=== PATIENT | female | born 1995 | race Caucasian/White ===

== ENCOUNTER 2017-05-03 20:36 | Emergency (ER) | payer MEDICAID ==
[2017-05-03 20:43] VITALS: BP 125/73; PULSE 77; RESP 16; TEMP 98.8; O2SAT 100
--- NOTE | 2017-05-03 21:26 | EDPHY ---
H & P Stated Complaint: hurt back weightlifting/yoga Time Seen by Provider: 05/03/17 21:15 HPI/ROS: CHIEF COMPLAINT: acute low back pain HISTORY OF PRESENT ILLNESS: 21-year-old female arrives via private vehicle states that 2 weeks ago she was performing lifting, bent over at the waist and felt immediate pain in her low back. This was then exacerbated further when she was performing yoga a few days later. She has continued left paraspinous low back pain with reproducible pain with range of motion, mild radiculopathy to the left lower extremity, no footdrop no weakness. No saddle anesthesia. No incontinence. No retention. No direct trauma or fall. No fever no chills. REVIEW OF SYSTEMS: A ten point review of systems was performed and is negative with the exception of the items mentioned in the HPI PAST MEDICAL & SURGICAL HISTORY: no prior history of back pain SOCIAL HISTORY:student nonsmoker PHYSICAL EXAM (Prior to examination, patient consented to physical exam, hands were washed and my usual and customary physical exam procedures followed) 1) GENERAL: Well-developed, well-nourished, alert and oriented. Appears to be in no acute distress. 2) HEAD: Normocephalic, atraumatic 3) HEENT: Pupils equal, round, reactive to light bilaterally. Sclera anicteric. Nasopharynx, oropharynx, clear, no lesions. 4) NECK: Full range of motion, no meningeal signs. 5) LUNGS: Clear auscultation bilaterally, no wheezes, no rhonchi, no retractions. 6) HEART: Regular rate and rhythm, no murmur, no heave, no gallop. 7) ABDOMEN: No guarding, no rebound, no focal tenderness, negative McBurney's, negative Rincon's, negative Rovsing's, negative peritoneal sign, 8) MUSCULOSKELETAL: Moving all extremities, no focal areas of tenderness, no obvious trauma. No peripheral edema or discoloration. 9) BACK: tender to palpation left paraspinous lumbar muscle. No CVA tenderness , no midline vertebral tenderness, no fluctuance, no step-off, no obvious trauma , no visual or palpable abnormality. Patella, Achilles reflexes intact to bilateral strength 5/5. Positive left leg lift test approximately 20 degrees 10) SKIN: No rash, no petechiae. 11) NEURO: Awake, alert, and oriented to person, place and time. Answers questions appropriately. There were no obvious focal neurologic abnormalities. No cerebellar dysfunction. Normal steady gait. Upper and lower extremities bilaterally with strength 5 / 5, reflexes 2+.. DIFFERENTIAL DIAGNOSIS: In no particular order, including but not limited to, fracture, sprain/strain, cauda equina, spinal infectious etiology. MEDICAL DECISION MAKING I explained the patient that I have a lower index of suspicion for cauda equina , epidural abscess, epidural hematoma, lumbar myositis, diskitis, as the patient is neurologically intact in the lower extremities, has patella and Achilles reflexes intact and equal bilaterally, has no neurologic deficits, no incontinence, no retention, no midline pain, no fluctuance, afebrile, no flulike symptoms. Pain may be secondary to muscular strain, may be secondary to discogenic etiology. At this point I do not identify definitive indication for emergent MRI, however patient may necessitate this on an outpatient basis. She has been given acute back pain precautions and follow-up information. She verbalizes understanding of discharge instructions. I believe them be competent decision-makers. All questions and concerns have been addressed by me. Ample opportunity for questions have been provided . The patient understands that this diagnosis is provisional and can never be 100% accurate. Usual and customary warnings were given concerning the clinical impression and all the patient's questions were answered. The patient was instructed to return to the emergency department should her symptoms worsen or return, or develop any new symptoms, otherwise to followup as directed in discharge instructions.Care of patient under supervision of secondary supervising physician Dr Mcgowan . - Personal History LMP (Females 10-55): 8-14 Days Ago Current Tetanus/Diphtheria Vaccine: No - Medical/Surgical History Hx Asthma: No Hx Chronic Respiratory Disease: No Hx Diabetes: No Hx Cardiac Disease: No Hx Renal Disease: No Hx Cirrhosis: No Hx Alcoholism: No Hx HIV/AIDS: No Hx Splenectomy or Spleen Trauma: No Other PMH: PMHx: denies. PSHx: denies - Social History Smoking Status: Never smoked Constitutional: Initial Vital Signs Temperature (C) 37.1 C 05/03/17 20:41 Heart Rate 77 10/16/17 20:41 Respiratory Rate 16 05/03/17 20:41 Blood Pressure 125/73 H 05/03/17 20:41 O2 Sat (%) 100 05/03/17 20:41 O2 Delivery Mode Room Air Allergies/Adverse Reactions: No Known Allergies Allergy (Unverified 05/03/17 20:41) Home Medications: Medication Instructions Recorded Cyclobenzaprine [Flexeril 10 MG 10 mg PO TID #15 tab 05/03/17 (RX)] Lidocaine 5% [Lidoderm 5% Patch 1 ea TD BID #30 patch 05/03/17 (*)] methylPREDNISolone [Medrol Dose 4 mg PO DAILY #1 ea 05/03/17 Elio] Departure - Departure Disposition: Home, Routine, Self-Care Clinical Impression: Low back pain Qualifiers: Chronicity: acute Back pain laterality: left Sciatica presence: with sciatica Sciatica laterality: sciatica of left side Qualified Code(s): M54.42 - Lumbago with sciatica, left side Condition: Good Instructions: Acute Low Back Pain (ED) Additional Instructions: Seek medical attention if you develop new or worsening pain, if you develop bladder or bowel dysfunction, numbness around your perineum, foot drop, or any other symptoms that concern you. Referrals: Shun Nolan MD [Medical Doctor] - 2-3 days, call for appt. (Dr. Nolan and his colleagues are neurosurgeons , you may say him or any of his colleagues) Prescriptions: Cyclobenzaprine [Flexeril 10 MG (RX)] 10 mg PO TID #15 tab Lidocaine 5% [Lidoderm 5% Patch (*)] 1 ea TD BID #30 patch methylPREDNISolone [Medrol Dose Elio] 4 mg PO DAILY #1 ea
== END 2017-05-03 21:32 | disposition home or self-care (01) ==
DX: M54.42 Lumbago with sciatica, left side (principal)

== ENCOUNTER 2017-09-22 14:25 | Emergency (ER) | payer MEDICAID ==
[2017-09-22] MEDS ORDERED: OLANZapine DISINTEGR 5 MG TAB PO ONE (14:48)
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
[2017-09-22 15:31] LABS: PLATELET COUNT 317 10^3/uL (150-400)
[2017-09-23 01:21] VITALS: BP 127/68; PULSE 77; RESP 16; TEMP 98.1; O2SAT 96
== END 2017-09-23 01:21 | disposition home or self-care (01) ==
DX: F60.0 Paranoid personality disorder (principal); R44.0 Auditory hallucinations
CPT/HCPCS: 80305